=== PATIENT | male | born 1965 | race Caucasian/White ===

== ENCOUNTER 2016-06-24 14:30 | Emergency (ER) | payer OTHER ==
[~2016-06-24] VITALS: Ht 165.1 cm; Wt 98.2 kg
[~2016-06-24 14:30] MED LIST: Flagyl PO; Levaquin PO; NO HOME MEDS; Percocet 5/325,Endoc PO
[2016-06-24 14:38] VITALS: BP 174/126
== END 2016-06-24 17:29 | disposition home or self-care (01) ==
LOC: EME 14:30
PROC: 0HQGXZZ Repair Left Hand Skin, External Approach (ICD-10-PCS; principal; 2016-06-24)
DX: S61.211A Laceration without foreign body of left index finger without damage to nail, initial encounter (principal); W26.0XXA Contact with knife, initial encounter
CPT/HCPCS: 99281; 99284; S0020